=== PATIENT | male | born 1950 | race Caucasian/White ===

== ENCOUNTER 2020-08-10 09:54 | Outpatient (CLI) | payer OTHER | END 2020-08-10 09:55 | disposition home or self-care (01) | LOC: DTY/OP 09:54 | PROVIDERS: ATTEND Family Medicine | DX: R73.03 Prediabetes (principal) | CPT/HCPCS: 97802 ==

== ENCOUNTER 2020-11-30 10:15 | Observation (INO) | payer MEDICARE ==
[~2020-11-30 10:15] MED LIST: Iopamidol-370 76% 500 ML 1 ML ONE
[2020-11-30 11:11] LABS: #Eosinphils 0.1 thou/uL (0.0-0.7); #Lymphocytes 2.2 thou/uL (1.20-3.40); #Monocytes 0.5 thou/uL (0.11-0.59); #Neutrophils 3.3 thou/uL (1.40-6.50); %Basophils 0.6 % (0.0-1.0); %Lymphocytes 35.4 % (21.0-51.0); %Monocytes 7.7 % (0.0-10.0); %Neutrophils 54.3 % (42.0-75.0); Hemoglobin 15.7 g/dL (14.0-18.0); Mean Corpuscular HGB CONC 33.3 g/dL (32.0-36.0); Mean Corpuscular Hemoglobin 29.9 pg (27.0-31.0); Mean Corpuscular Volume 89.9 fL (78.0-98.0); Mean Platelet Volume 7.1 fL (7.4-10.4); Platelet Count 247 thou/uL (130-400); Red Blood Cell (RBC) Count 5.26 mill/uL (4.70-6.10); White Blood Cell (WBC) Count 6.1 thou/uL (4.8-10.8)
[2020-11-30 11:22] LABS: ALT (SGPT) 21 U/L (8-55); AST (SGOT) 24 U/L (5-34); Albumin 3.9 g/dL (3.4-4.8); Alkaline Phosphatase 66 U/L (40-110); Anion Gap 13 mmol/L (10-20); BUN (Urea Nitrogen) 13 mg/dL (8.4-25.7); Bilirubin, Total 0.4 mg/dL (0.2-1.2); Calc. Creatinine Clearance 0 mL/min (70-130); Calcium 9.4 mg/dL (7.8-10.44); Carbon Dioxide 23 mmol/L (23-31); Chloride 106 mmol/L (98-107); Globulin 3.2 g/dL (2.4-3.5); Glucose 112 mg/dL (80-115); Potassium 4.1 mmol/L (3.5-5.1); Protein, Total 7.1 g/dL (5.8-8.1); Sodium 138 mmol/L (136-145)
[2020-11-30] MEDS ORDERED: Aspirin Chewable 81 MG TAB ONE (12:53)
[2020-11-30] MEDS ORDERED: Acetaminophen 650 MG Suppository PR PRN (14:18)
[2020-11-30] MEDS ORDERED: Ondansetron PF 4 MG/2 ML Vial IVP PRN (14:18)
[2020-11-30] MEDS ORDERED: Ondansetron ODT 4 MG TAB PO PRN (14:18)
[2020-11-30] MEDS ORDERED: Acetaminophen 325 MG TAB PO PRN (14:18)
[2020-11-30] MEDS ORDERED: Nitroglycerin 0.4 MG TAB (25 Tab Bottle) SL PRN (14:25)
[2020-11-30 15:10] LABS: Prothrombin Time 13.6 sec (12.0-14.7)
[2020-11-30 15:11] LABS: PTT 24.8 sec (22.9-36.1)
[2020-11-30 15:13] LABS: D-Dimer Test 0.68 *mcg/mL (0.27-0.43)
[2020-11-30 19:03] VITALS: BMI 31.9
[2020-11-30 19:33] LABS: Troponin I Less than 0.010 ng/mL (< 0.028)
[2020-11-30 19:38] LABS: SARS-CoV-2 PCR by NAA Not Detected (NotDetected)
[2020-11-30] MEDS ORDERED: Enoxaparin Sodium 100 MG/ML SYRINGE SC SCH (22:00)
[2020-11-30 22:26] LABS: Troponin I Less than 0.010 ng/mL (< 0.028)
[2020-12-01 05:19] LABS: #Basophils 0.1 thou/uL (0.0-0.2); #Eosinphils 0.2 thou/uL (0.0-0.7); #Lymphocytes 2.2 thou/uL (1.20-3.40); #Monocytes 0.6 thou/uL (0.11-0.59); #Neutrophils 3.4 thou/uL (1.40-6.50); %Basophils 0.9 % (0.0-1.0); %Eosinophils 3.7 % (0.0-10.0); %Monocytes 9.1 % (0.0-10.0); %Neutrophils 52.3 % (42.0-75.0); Hemoglobin 14.9 g/dL (14.0-18.0); Mean Corpuscular HGB CONC 34.2 g/dL (32.0-36.0); Mean Corpuscular Volume 90.6 fL (78.0-98.0); Mean Platelet Volume 7.4 fL (7.4-10.4); Platelet Count 223 thou/uL (130-400); RBC Distribution Width 12.1 % (11.5-14.5); White Blood Cell (WBC) Count 6.5 thou/uL (4.8-10.8)
[2020-12-01 05:42] LABS: Anion Gap 13 mmol/L (10-20); BUN (Urea Nitrogen) 15 mg/dL (8.4-25.7); Calc. Creatinine Clearance 94 mL/min (70-130); Calcium 8.6 mg/dL (7.8-10.44); Carbon Dioxide 23 mmol/L (23-31); Cardiac Risk 4.3 (Less than 4.5); Chloride 106 mmol/L (98-107); Cholesterol 172 mg/dl (< 200 Desired); Glucose 111 mg/dL (80-115); HDL Cholesterol 40 mg/dL (>60 Neg Risk); LDL Cholesterol, Calculated 90 mg/dL; Potassium 3.9 mmol/L (3.5-5.1); Sodium 138 mmol/L (136-145); Triglycerides 208 mg/dL (Less than 150)
[2020-12-01 07:52] VITALS: BP 128/86; TEMP 97.4
[2020-12-01] MEDS ORDERED: Enoxaparin Sodium 40 MG/0.4 ML SYRINGE SC SCH (09:00)
[2020-12-01] MEDS ORDERED: Enoxaparin Sodium 100 MG/ML SYRINGE SC SCH (09:00)
== END 2020-12-01 11:10 | disposition home or self-care (01) ==
LOC: ERS 10:15 → ERHOLD 13:31 → 2NO 18:33
PROVIDERS: ADMIT Family Medicine; ATTEND Internal Medicine
DX: R07.89 Other chest pain (principal); R00.2 Palpitations; I10 Essential (primary) hypertension; G47.30 Sleep apnea, unspecified; I45.10 Unspecified right bundle-branch block; I44.0 Atrioventricular block, first degree; R60.0 Localized edema; N32.0 Bladder-neck obstruction; I35.1 Nonrheumatic aortic (valve) insufficiency; Z85.46 Personal history of malignant neoplasm of prostate; Z79.899 Other long term (current) drug therapy; Z20.822 Contact with and (suspected) exposure to COVID-19
CPT/HCPCS: 71045; 71275; 80048; 80053; 80061; 83735; 83880; 84484 ×2; 85025 ×2; 85379; 85610; 85730; 93005; 93970; 96372 ×2; 99285; G0378 ×3; U0003; U0005; 36415; J1650; Q9967

== ENCOUNTER 2021-07-24 11:55 | Outpatient (CLI) | payer BC, MEDICARE ==
[2021-07-24 12:42] LABS: Bilirubin Neg (Negative); Blood, Urine 150 (Negative); Glucose, Urine (Dipstick) Normal (Negative); Ketone, Urine Negative (Negative); Leukocyte Negative (Negative); Nitrite Negative (Negative); Protein, Urine (Dipstick) Negative (Neg-Trace); Urobilinogen Normal mg/dL (Less than 2)
[2021-07-24 12:45] LABS: Clarity Clear (Clear); Hemoglobin 16.1 g/dL (13.5-17.5); Mean Corpuscular HGB CONC 32.9 g/dL (32.0-36.0); Mean Corpuscular Hemoglobin 29.1 pg (27.0-33.0); Mean Corpuscular Volume 88.6 fl (81.2-95.1); Platelet Count 249 10x3/uL (150-450); RBC Distribution Width 13.2 % (11.5-14.5); Red Blood Cell (RBC) Count 5.53 10x6/uL (4.32-5.72); White Blood Cell (WBC) Count 7.9 10x3/uL (3.5-10.5)
[2021-07-24 12:55] LABS: PTT 24.7 sec (22.0-33.0); Prothrombin Time 10.9 sec (9.5-12.1)
[2021-07-24 12:59] LABS: Anion Gap 13 mmol/L (10-20); BUN (Urea Nitrogen) 18 mg/dL (8.4-25.7); Calc. Creatinine Clearance 0 mL/min (70-130); Carbon Dioxide 27 mmol/L (23-31); Chloride 107 mmol/L (98-107); Glucose 106 mg/dL (83-110); Potassium 4.1 mmol/L (3.5-5.1); Sodium 143 mmol/L (136-145)
[2021-07-24 13:01] LABS: Bacteria/HPF None Seen HPF (None Seen); RBC/HPF 0-3 HPF (0-3); Squamous Epithelial 0-3 HPF (0-3); WBC/HPF None Seen HPF (0-3)
[2021-07-25 00:09] LABS: SARS-CoV-2 PCR by NAA Not Detected (NotDetected)
== END 2021-07-24 11:56 | disposition home or self-care (01) ==
LOC: LABBT 11:55
PROVIDERS: ATTEND Urology
DX: Z01.818 Encounter for other preprocedural examination (principal); N99.114 Postprocedural urethral stricture, male, unspecified; N20.0 Calculus of kidney; C61 Malignant neoplasm of prostate; N39.46 Mixed incontinence; Z20.822 Contact with and (suspected) exposure to COVID-19
CPT/HCPCS: 80048; 81001; 85027; 85610; 85730; 87086; 93005; U0003; U0005; 93010

== ENCOUNTER → 2021-07-27 | Day surgery (SDC) | payer BC, MEDICARE ==
[2021-07-25 11:40] VITALS: BMI 31.5
[~2021-07-27] MED LIST changes: +B & O ONE; +Dexamethasone 20 MG/5 ML VIAL ONE; +Fentanyl 100 MCG/2 ML VIAL ONE; -Iopamidol-370 76% 500 ML 1 ML ONE; +Ioversol 68 % 50 ML VIAL ONE; +Levofloxacin 500 mg/D5W 100 ml Premix Bag ONE; +Lidocaine 1% PF 5 ML VIAL ONE; +Ondansetron PF 4 MG/2 ML Vial ONE; +PROPOFOL 200 MG/20 ML VIAL ONE; +Triamcinolone 40 MG/ML VIAL FS SCH; +Triamcinolone Acetonide 40 MG in Sodium Chloride 0.9% 4 ML FS SCH
== END ==
LOC: SDC 06:13
PROVIDERS: ATTEND Urology
PROC: 0TND8ZZ Release Urethra, Via Natural or Artificial Opening Endoscopic (ICD-10-PCS; principal; 2021-07-27)
DX: N99.114 Postprocedural urethral stricture, male, unspecified (principal); N20.0 Calculus of kidney; N39.46 Mixed incontinence; Z79.899 Other long term (current) drug therapy; Z85.46 Personal history of malignant neoplasm of prostate
CPT/HCPCS: J1100; J1956; J2405; J2704; J3010; J3301; Q9967

== ENCOUNTER 2023-03-01 19:40 | Emergency (ER) | payer BC, MEDICARE ==
[2023-03-01 20:18] LABS: #Basophils 0.1 thou/uL (0.0-0.2); #Eosinphils 0.3 thou/uL (0.0-0.7); #Monocytes 0.8 thou/uL (0.11-0.59); #Neutrophils 4.7 thou/uL (1.40-6.50); %Basophils 0.7 % (0.0-1.0); %Eosinophils 3.2 % (0.0-10.0); %Lymphocytes 27.5 % (21.0-51.0); %Neutrophils 58.4 % (42.0-75.0); Hematocrit 48.8 % (42.0-52.0); Hemoglobin 16.7 g/dL (14.0-18.0); Mean Corpuscular HGB CONC 34.2 g/dL (32.0-36.0); Mean Corpuscular Hemoglobin 29.9 pg (27.0-31.0); Mean Corpuscular Volume 87.5 fl (78.0-98.0); Mean Platelet Volume 9.1 fL (7.4-10.4); Platelet Count 247 10x3/uL (130-400); RBC Distribution Width 12.8 % (11.5-14.5); Red Blood Cell (RBC) Count 5.58 mill/uL (4.70-6.10)
[2023-03-01 20:41] LABS: ALT (SGPT) 17 U/L (8-55); AST (SGOT) 29 U/L (5-34); Albumin 4.1 g/dL (3.4-4.8); Alkaline Phosphatase 63 U/L (40-110); Anion Gap 17 mmol/L (10-20); BUN (Urea Nitrogen) 20 mg/dL (8.4-25.7); Bilirubin, Total 0.4 mg/dL (0.2-1.2); Calc. Creatinine Clearance 0 mL/min (70-130); Carbon Dioxide 20 mmol/L (23-31); Chloride 104 mmol/L (98-107); Estimated GFR 45; Globulin 3.5 g/dL (2.4-3.5); Glucose 96 mg/dL (83-110); Potassium 4.2 mmol/L (3.5-5.1); Protein, Total 7.6 g/dL (5.8-8.1); Sodium 137 mmol/L (136-145)
[2023-03-01 20:51] LABS: Troponin I Less than 0.010 ng/mL (< 0.028)
== END 2023-03-01 21:32 | disposition home or self-care (01) ==
LOC: ERS 19:40
DX: R00.2 Palpitations (principal); I10 Essential (primary) hypertension; Z79.899 Other long term (current) drug therapy
CPT/HCPCS: 36415; 71045; 80053; 84484; 85025; 93005

== ENCOUNTER 2023-12-31 13:21 | Outpatient (CLI) | payer BC, MEDICARE ==
[2023-12-31 14:55] LABS: #Basophils 0.06 10x3/uL (0.0-0.2); %Basophils 0.9 % (0.0-1.0); %Eosinophils 1.9 % (0.0-10.0); %Lymphocytes 29.3 % (21.0-51.0); %Monocytes 8.2 % (0.0-10.0); %Neutrophils 59.6 % (42.0-75.0); Hematocrit 48.4 % (42.0-52.0); Mean Corpuscular HGB CONC 33.1 g/dL (32.0-36.0); Mean Corpuscular Hemoglobin 30.4 pg (27.0-31.0); Mean Platelet Volume 9.4 fL (7.4-10.4); Platelet Count 218 10x3/uL (130-400); RBC Distribution Width 12.9 % (11.5-14.5); Red Blood Cell (RBC) Count 5.26 mill/uL (4.70-6.10)
[2023-12-31 15:08] LABS: Bilirubin Negative (Negative); Blood, Urine 1+ (Negative); Clarity Clear (Clear); Glucose, Urine (Dipstick) Normal (Negative); Ketone, Urine 20 mg/dL (Negative); Leukocyte Negative Leu/uL (Negative); Nitrite Negative (Negative); Protein, Urine (Dipstick) Negative (Neg-Trace); Specific Gravity, Urine 1.018 (1.002-1.036); Urobilinogen Normal mg/dL (Less than 2); pH, Urine 5.5 (5.0-9.0)
[2023-12-31 15:10] LABS: Anion Gap 13 mmol/L (10-20); BUN (Urea Nitrogen) 16 mg/dL (8.4-25.7); Calc. Creatinine Clearance 0 mL/min (70-130); Calcium 9.1 mg/dL (7.8-10.44); Carbon Dioxide 26 mmol/L (23-31); Chloride 106 mmol/L (98-107); Estimated GFR 79; Glucose 94 mg/dL (83-110); Potassium 3.9 mmol/L (3.5-5.1); Sodium 141 mmol/L (136-145)
[2023-12-31 15:11] LABS: INR-International Normal Ratio 1.1; Prothrombin Time 13.7 sec (12.0-14.7)
== END 2023-12-31 13:22 | disposition home or self-care (01) ==
LOC: LABBT 13:21
PROVIDERS: ATTEND Orthopaedic Surgery
DX: Z01.818 Encounter for other preprocedural examination (principal); M17.0 Bilateral primary osteoarthritis of knee
CPT/HCPCS: 71046; 80048; 81003; 85025; 85610; 87081

== ENCOUNTER 2023-12-31 14:45 | Outpatient (CLI) | payer BC, MEDICARE | END 2023-12-31 14:46 | disposition home or self-care (01) | LOC: CT 14:45 | PROVIDERS: ATTEND Orthopaedic Surgery | DX: M17.11 Unilateral primary osteoarthritis, right knee (principal); K40.20 Bilateral inguinal hernia, without obstruction or gangrene, not specified as recurrent; K57.30 Diverticulosis of large intestine without perforation or abscess without bleeding; M46.1 Sacroiliitis, not elsewhere classified; M16.0 Bilateral primary osteoarthritis of hip; M25.461 Effusion, right knee; M76.61 Achilles tendinitis, right leg ==

== ENCOUNTER 2024-01-06 08:33 | Observation (INO) | payer BC, MEDICARE ==
[2023-12-31 13:55] VITALS: BMI 29.9
[2024-01-06] MEDS ORDERED: Bupivacaine PF 0.5% 30 ML VIAL ONE ×2 (09:14→09:31)
[2024-01-06] MEDS ORDERED: fentaNYL 50 mcg/mL 1 mL Vial ONE ×4 (09:14→13:09)
[2024-01-06] MEDS ORDERED: Midazolam HCl 2 mg/2 ml Vial ONE (09:14)
[2024-01-06] MEDS ORDERED: CEFAZOLIN 2 GM VIAL ONE (09:29)
[2024-01-06] MEDS ORDERED: Tranexamic Acid 1,000 MG/10 ML VIAL ONE ×2 (09:29→12:44)
[2024-01-06] MEDS ORDERED: Vancomycin (BATCH) 1.5 GM/300 ML BAG ONE (09:29)
[2024-01-06] MEDS ORDERED: methylPREDNISolone Acetate 40 mg/ml Vial ONE (09:30)
[2024-01-06] MEDS ORDERED: Lidocaine 1% (PF) 30 ML VIAL ONE (09:30)
[2024-01-06] MEDS ORDERED: Sodium Chloride 0.9% 100 ML ONE (09:52)
[2024-01-06] MEDS ORDERED: Bupivacaine HCl 0.5%/Epinephrine 1:200,000/PF 30 ml Vial ONE (10:10)
[2024-01-06] MEDS ORDERED: PROPOFOL 40 ML ONE (10:28)
[2024-01-06] MEDS ORDERED: Zolpidem Tartrate 5 MG TAB PO PRN ×2 (10:30→12:19)
[2024-01-06] MEDS ORDERED: Promethazine HCl 25 MG/ML VIAL IM PRN ×2 (10:30→12:19)
[2024-01-06] MEDS ORDERED: Ondansetron PF 4 MG/2 ML Vial IVP PRN ×2 (10:30→12:19)
[2024-01-06] MEDS ORDERED: fentaNYL 50 mcg/mL 1 mL Vial SLOW IVP PRN (10:30)
[2024-01-06] MEDS ORDERED: Ropivacaine 0.2% 550 ML 550 ML NERVE BLCK SCH (10:30)
[2024-01-06] MEDS ORDERED: traMADol HCl 50 MG TAB PO PRN (10:30)
[2024-01-06] MEDS ORDERED: Dexamethasone 4 mg/ml Vial ONE (11:00)
[2024-01-06] MEDS ORDERED: Ondansetron PF 4 MG/2 ML Vial ONE (11:00)
[2024-01-06] MEDS ORDERED: PHENYLEPHRINE-NS 100 MCG/ML 10 ML SYRINGE ONE ×3 (11:01→11:10)
[2024-01-06] MEDS ORDERED: Glycopyrrolate 0.2 MG/ML 5 ML SYRINGE ONE (11:01)
[2024-01-06] MEDS ORDERED: HYDROmorphone 2 MG/ML VIAL ONE (11:19)
[2024-01-06] MEDS ORDERED: Acetaminophen 325 MG TAB PO PRN (12:19)
[2024-01-06] MEDS ORDERED: diphenhydrAMINE 25 MG CAP PO PRN (12:19)
[2024-01-06] MEDS ORDERED: Ketorolac Tromethamine 30 MG (1 mL) VIAL ONE (12:44)
[2024-01-06] MEDS ORDERED: fentaNYL PF 100 MCG/2 ML SYRINGE ONE (13:28)
[2024-01-06] MEDS ORDERED: hydrALAZINE 20 MG/ML VIAL ONE (14:07)
[2024-01-06] MEDS: Sodium Chloride 0.9% 1,000 ML IV SCH (15:20)
[2024-01-06] MEDS: Ketorolac Tromethamine 30 MG (1 mL) VIAL IVP SCH (15:20)
[2024-01-06] MEDS: Tranexamic Acid 1,000 MG in Sodium Chloride 0.9% 100 ML IVPB SCH (15:20)
[2024-01-06] MEDS: traMADol HCl 50 MG TAB PO PRN (15:21)
[2024-01-06] MEDS: CEFAZOLIN 2 GM in Sodium Chloride 0.9% 100 ML IVPB SCH (18:46)
[2024-01-06] MEDS: Vancomycin (BATCH) 1.5 GM in Premix 1 BAG IVPB SCH (21:10)
[2024-01-06] MEDS: Senokot S 8.6-50 MG TAB PO SCH (21:10)
[2024-01-06] MEDS: Aspirin 81 mg Enteric Coated Tablet PO SCH (21:10)
[2024-01-06] MEDS: Ferrous Gluconate 324 MG TAB PO SCH (21:10)
[2024-01-07 05:19] LABS: Hematocrit 41.1 % (42.0-52.0); Hemoglobin 13.6 g/dL (14.0-18.0); Mean Corpuscular HGB CONC 33.1 g/dL (32.0-36.0); Mean Corpuscular Hemoglobin 29.8 pg (27.0-31.0); Mean Corpuscular Volume 90.1 fL (78.0-98.0); Mean Platelet Volume 9.4 fL (7.4-10.4); Platelet Count 231 10x3/uL (130-400); RBC Distribution Width 12.7 % (11.5-14.5); Red Blood Cell (RBC) Count 4.56 mill/uL (4.70-6.10)
[2024-01-07] MEDS: Lisinopril 20 MG TAB PO SCH (09:32)
[2024-01-07] MEDS: Multivitamin W/ Minerals 1 TAB PO SCH (09:32)
[2024-01-07] MEDS: Multivit, Therapeutic 1 TAB PO SCH (09:34)
[2024-01-07] MEDS: FLU (Fluad Triv) TS24-25 (65UP)/MF59C/PF 45 MCG/0.5 ML Syringe ONE (10:36)
[2024-01-07 12:28] VITALS: BP 120/71; TEMP 98.7
[2024-01-07] MEDS ORDERED: FLU (Fluad Triv) TS24-25 (65UP)/MF59C/PF 45 MCG/0.5 ML Syringe IM ONE (15:30)
== END 2024-01-07 12:33 | disposition home or self-care (01) ==
LOC: SDC 08:33 → INTOOBSV 14:47 → SURG A 14:47
PROVIDERS: ADMIT Orthopaedic Surgery; ATTEND Orthopaedic Surgery
PROC: 0SRC06Z Replacement of Right Knee Joint with Oxidized Zirconium on Polyethylene Synthetic Substitute, Open Approach (ICD-10-PCS; principal; 2024-01-07)
PROC: 0S9D3ZZ Drainage of Left Knee Joint, Percutaneous Approach (ICD-10-PCS; 2024-01-07)
PROC: 3E0T3BZ Introduction of Anesthetic Agent into Peripheral Nerves and Plexi, Percutaneous Approach (ICD-10-PCS; 2024-01-07)
DX: M17.0 Bilateral primary osteoarthritis of knee (principal); I10 Essential (primary) hypertension; I35.1 Nonrheumatic aortic (valve) insufficiency; C61 Malignant neoplasm of prostate; Z79.899 Other long term (current) drug therapy
CPT/HCPCS: 0055T; 20610; 27447; 64448; 36415; 85027; 90653; A4306; C1713; C1776; C1889; J0360; J0665; J1010; J1100; J1885; J2250; J2405; J2704; J2795; J3010; J3370